=== PATIENT | female | born 1960 | race Caucasian/White ===

== ENCOUNTER → 2017-10-15 | Outpatient (CLI) | payer OTHER | END | disposition home or self-care (01) | LOC: EEG 10:08 | DX: G40.909 Epilepsy, unspecified, not intractable, without status epilepticus (principal) | CPT/HCPCS: 95819 ==

== ENCOUNTER 2018-01-08 07:22 | Day surgery (SDC) | payer OTHER ==
[2018-01-08] MEDS ORDERED: PROPOFOL 60 ML (08:29)
[2018-01-08] MEDS ORDERED: LIDOCAINE 2% (SDV) 5 ML INJ (08:29)
== END 2018-01-08 11:00 | disposition home or self-care (01) ==
LOC: SUR 07:22 → GIL 08:28
DX: R19.4 Change in bowel habit (principal); K21.9 Gastro-esophageal reflux disease without esophagitis; K29.70 Gastritis, unspecified, without bleeding; K64.4 Residual hemorrhoidal skin tags; K64.8 Other hemorrhoids
CPT/HCPCS: 43239; 88305; 88312